=== PATIENT | male | born 1980 | race Caucasian/White ===

== ENCOUNTER 2019-03-03 08:12 | Emergency (ER) | payer BC, SELFPAY ==
--- NOTE | 2019-03-03 08:44 | EDPHYS ---
Physician Documentation [facility] Name: Yash Fuentes Age: 38 yrs Sex: Male : 1980 Arrival Date: 03/03/2019 Time: 08:14 Bed 19 Private MD: ED Physician Blue Ernandez HPI: 03/03 08:45 This 38 yrs old Male presents to ER via Ambulatory with complaints of kb Abdominal Pain. 08:45 The patient presents with abdominal pain in the upper abdomen. Onset: The kb symptoms/episode began/occurred 2 day(s) ago. The symptoms do not radiate. Associated signs and symptoms: Pertinent positives:. The symptoms are described as achy. 09:00 Modifying factors: The symptoms are alleviated by antacids, the symptoms are aggravated kb by nothing. Severity of pain: At its worst the pain was moderate in the emergency department the pain has improved markedly. The patient has not experienced similar symptoms in the past. The patient has not recently seen a physician. 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 States he took a couple of different heart burn medications and that relieved the pain for the most part. Denies fever, n/v/d.. Historical: - Allergies: 08:50 No Known Allergies; sg - Home Meds: 08:50 None [Active]; sg - PMHx: 08:50 None; sg - PSHx: 08:50 None; sg - Immunization history:: Adult Immunizations not up to date. - Social history:: Smoking status: Patient uses tobacco products. - Ebola Screening: : Patient negative for fever greater than or equal to 101.5 degrees Fahrenheit, and additional compatible Ebola Virus Disease symptoms Patient denies exposure to infectious person Patient denies travel to an Ebola-affected area in the 21 days before illness onset No symptoms or risks identified at this time. ROS: 09:00 Constitutional: Negative for fever, chills, and weight loss, ENT: Negative for injury, kb pain, and discharge, Neck: Negative for injury, pain, and swelling, Cardiovascular: Negative for chest pain, palpitations, and edema, Respiratory: Negative for shortness of breath, cough, wheezing, and pleuritic chest pain, Back: Negative for injury and pain, MS/Extremity: Negative for injury and deformity, Skin: Negative for injury, rash, and discoloration, Neuro: Negative for headache, weakness, numbness, tingling, and seizure. 09:00 Abdomen/GI: Positive for abdominal pain, Negative for nausea, vomiting, and diarrhea, constipation. Exam: 09:00 Constitutional: This is a well developed, well nourished patient who is awake, alert, kb and in no acute distress. Head/Face: Normocephalic, atraumatic. ENT: Nares patent. No nasal discharge, no septal abnormalities noted. Tympanic membranes are normal and external auditory canals are clear. Oropharynx with no redness, swelling, or masses, exudates, or evidence of obstruction, uvula midline. Mucous membranes moist. Neck: Trachea midline, no thyromegaly or masses palpated, and no cervical lymphadenopathy. Supple, full range of motion without nuchal rigidity, or vertebral point tenderness. No Meningismus. Chest/axilla: Normal chest wall appearance and motion. Nontender with no deformity. No lesions are appreciated. Cardiovascular: Regular rate and rhythm with a normal S1 and S2. No gallops, murmurs, or rubs. Normal PMI, no JVD. No pulse deficits. Respiratory: Lungs have equal breath sounds bilaterally, clear to auscultation and percussion. No rales, rhonchi or wheezes noted. No increased work of breathing, no retractions or nasal flaring. Abdomen/GI: Soft, non-tender, with normal bowel sounds. No distension or tympany. No guarding or rebound. No evidence of tenderness throughout. Skin: Warm, dry with normal turgor. Normal color with no rashes, no lesions, and no evidence of cellulitis. MS/ Extremity: Pulses equal, no cyanosis. Neurovascular intact. Full, normal range of motion. Neuro: Awake and alert, GCS 15, oriented to person, place, time, and situation. Cranial nerves II-XII grossly intact. Motor strength 5/5 in all extremities. Sensory grossly intact. Cerebellar exam normal. Normal gait. Vital Signs: 08:32 Pulse 108; Resp 18; Temp 99.1; Pulse Ox 97% on R/A; Pain 4/10; sg 08:35 BP 140 / 97; sg MDM: 08:26 Patient medically screened. kb 08:41 Data reviewed: vital signs, nurses notes. Data interpreted: Pulse oximetry: on room air kb is 97 %. Interpretation: normal. Counseling: I had a detailed discussion with the patient and/or guardian regarding: the historical points, exam findings, and any diagnostic results supporting the discharge/admit diagnosis, the need for outpatient follow up, a family practitioner, a bunch trimmer mold, to return to the emergency department if symptoms worsen or persist or if there are any questions or concerns that arise at home. Refusal of service: The patient/guardian displays adequate decision making capability and despite a detailed discussion of alternatives, benefits, risks, and consequences refuses: all lab tests. ED course: Pt reports he is feeling better after taking OTC antacids and doesn't really want to stay here for labs and US. Will return if symptoms get worse. . 03/03 08:33 Order name: IV Saline Lock kb 03/03 08:33 Order name: Labs collected and sent kandis Administered Medications: No medications were administered Disposition: 18:59 Co-signature as Attending Physician, Blue Ernandez MD. rn Disposition: 03/03/19 08:42 Discharged to Home. Impression: Upper abdominal pain, unspecified. - Condition is Stable. - Discharge Instructions: Gastroesophageal Reflux Disease, Adult, Abdominal Pain, Adult, [id number]. - Prescriptions for Bentyl 20 mg Oral Tablet - take 1 tablet by ORAL route every 6 hours As needed; 20 tablet. - Medication Reconciliation Form, Thank You Letter, Antibiotic Education, Prescription Opioid Use form. - Follow up: Emergency Department; When: As needed; Reason: Worsening of condition. Follow up: Private Physician; When: 2 - 3 days; Reason: Recheck today's complaints, Continuance of care, Re-evaluation by your physician. Signatures: Dispatcher [employer] Dayami Sprague, PORTFOLIO ACCOUNTANT-C PORTFOLIO ACCOUNTANT-CkFelton Lucio, RN RN Sarah Monreal ms, Roman, MD MD review rn: (The following items were deleted from the chart) 08:47 08:34 BASIC METABOLIC PANEL+C.LAB.BRZ ordered. EDAK EDMS 08:47 08:34 CBC+H.LAB.BRZ ordered. EDAK EDMS 08:47 08:34 HEPATIC FUNCTION+C.LAB.BRZ ordered. EDAK EDMS 08:47 08:34 LIPASE+C.LAB.BRZ ordered. EDAK EDMS 08:47 08:42 03/03/2019 08:42 Discharged to Home. Impression: Upper abdominal pain, ms unspecified. Condition is Stable. Forms are Medication Reconciliation Form, Thank You Letter, Antibiotic Education, Prescription Opioid Use. Follow up: Emergency Department; When: As needed; Reason: Worsening of condition. Follow up: Private Physician; When: 2 - 3 days; Reason: Recheck today's complaints, Continuance of care, Re-evaluation by your physician. kb
--- NOTE | 2019-03-03 08:44 | ER ---
Nurse's Notes [facility] Name: Yash Fuentes Age: 38 yrs Sex: Male : 1980 Arrival Date: 03/03/2019 Time: 08:14 Bed 19 Private MD: Diagnosis: Upper abdominal pain, unspecified Presentation: 03/03 08:33 Presenting complaint: Patient states: Epigastric pain for several days now, reports sg feels like cramping that its intermittent, has gotten a little better after having taken gabapentin and stool softeners, pt states having normal BM patterns, denies N/V/D/Fever at this time. Transition of care: patient was not received from another setting of care. Onset of symptoms was March 03, 2019. Risk Assessment: Do you want to hurt yourself or someone else? Patient reports no desire to harm self or others. Initial Sepsis Screen: Does the patient meet any 2 criteria? No. Patient's initial sepsis screen is negative. Does the patient have a suspected source of infection? Yes: Acute abdominal pain. Care prior to arrival: None. 08:33 Method Of Arrival: Ambulatory sg 08:33 Acuity: ANDREW 3 sg Historical: - Allergies: 08:50 No Known Allergies; sg - Home Meds: 08:50 None [Active]; sg - PMHx: 08:50 None; sg - PSHx: 08:50 None; sg - Immunization history:: Adult Immunizations not up to date. - Social history:: Smoking status: Patient uses tobacco products. - Ebola Screening: : Patient negative for fever greater than or equal to 101.5 degrees Fahrenheit, and additional compatible Ebola Virus Disease symptoms Patient denies exposure to infectious person Patient denies travel to an Ebola-affected area in the 21 days before illness onset No symptoms or risks identified at this time. Screenin:30 Abuse screen: Denies threats or abuse. Denies injuries from another. Nutritional sg screening: No deficits noted. Tuberculosis screening: No symptoms or risk factors identified. Never had TB. Fall Risk None identified. Assessment: 08:35 Reassessment: at bedside for lab draw, pt reports pain has resolved and he would like sg to go home to do a follow up with PCP later in the week. Zander CHE notified, pt to be dispo to home. 08:35 General: Appears in no apparent distress. well groomed, well developed, well nourished, sg Behavior is calm, cooperative, appropriate for age. 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 Neuro: Level of Consciousness is awake, alert, obeys commands, Oriented to person, place, time, Camp Director are equal bilaterally Moves all extremities. Gait is steady. Cardiovascular: Capillary refill is brisk in bilateral fingers Patient's skin is warm and dry. Chest pain is denied. Respiratory: Airway is patent Respiratory effort is even, unlabored, Respiratory pattern is regular, symmetrical. GI: Abdomen is round non-distended, Bowel sounds present X 4 quads. Reports normal bowel habits, tolerance of fluids, tolerance of food. : No signs and/or symptoms were reported regarding the genitourinary system. EENT: No signs and/or symptoms were reported regarding the EENT system. Derm: Skin is pink, warm \T\ dry. Musculoskeletal: Circulation, motion, and sensation intact. Range of motion: intact in all extremities. Vital Signs: 08:32 Pulse 108; Resp 18; Temp 99.1; Pulse Ox 97% on R/A; Pain 4/10; sg 08:35 BP 140 / 97; sg ED Course: 08:14 Patient arrived in ED. rg4 08:16 Dayami Jimenez FNP-C [facility]. kb 08:17 Blue Ernandez MD is Attending Physician. kb 08:27 Felton Gonzalez, RN is Primary Nurse. sg 08:31 Arm band placed on. sg 08:35 Triage completed. sg 08:35 Patient has correct armband on for positive identification. Bed in low position. Call sg light in reach. Side rails up X2. Pulse ox on. NIBP on. Warm blanket given. Head of bed elevated. 08:45 No provider procedures requiring assistance completed. Patient did not have IV access sg during this emergency room visit. Administered Medications: No medications were administered Outcome: 08:42 Discharge ordered by . kb 08:45 Discharged to home ambulatory, with friend. sg 08:45 Condition: good 08:45 Discharge instructions given to patient, Instructed on discharge instructions, follow up and referral plans. medication usage, safety practices, Demonstrated understanding of instructions, follow-up care, medications, Prescriptions given X 1. 08:47 Patient left the ED. ms Signatures: Dayami Jimenez, COMPRESSOR STATION OPERATOR-C COMPRESSOR STATION OPERATOR-Felton Bowling, JOSE D RN Sarah Monreal ms, Rubi rg4
[2019-03-03 08:55] VITALS: BP 140/97
[2019-03-03 09:01] VITALS: TEMP 99.1; O2SAT 97
== END 2019-03-03 08:47 | disposition home or self-care (01) ==
LOC: ER 08:12
DX: R10.10 Upper abdominal pain, unspecified (principal); Z72.0 Tobacco use
CPT/HCPCS: 99283

== ENCOUNTER 2020-12-29 04:05 | Emergency (ER) | payer SELFPAY ==
--- OUTSIDE RECORDS SUMMARY | 2020-12-29 04:08 | XMS REPORT | Continuity of Care Document ---
:1980 Author Organization [facility] t Address [address] [place] [address] Care Team Providers Name Role Phone Jes CHE Attending Clinician Doctor Unassigned, Name Attending Clinician Unavailable Problems This patient has no known problems. Allergies, Adverse Reactions, Alerts This patient has no known allergies or adverse reactions. Medications This patient has no known medications. Procedures This patient has no known procedures. Encounters Start End Encounter Admission Attending Care Care Encounter Source Date/Time Date/Time Type Type Clinicians Facility Department ID 2020-03-30 2020-03-30 Emergency Jes [facility] [id number] 21:19:00 21:37:00 Micaelaaline [place] [id number] [place] [id number] [place] [id number] 2019-07-04 2019-07-04 Orders Doctor SRIVASTAVA [id number] 00:00:00 00:00:00 Only UnassignedHEIDI [id number] [place] [facility] [id number] Results This patient has no known results.
--- NOTE | 2020-12-29 06:10 | ER ---
Nurse's Notes [facility] Name: Yash Fuentes Age: 40 yrs Sex: Male : 1980 Arrival Date: 12/29/2020 Time: 04:08 Bed 14 Private MD: Diagnosis: Local infection of the skin and subcutaneous tissue, unspecified Presentation: 12/29 04:20 Chief complaint: Patient states: he has had a skin irritation for about 3 months now it bb started after he bought a used truck. Coronavirus screen: At this time, the client does not indicate any symptoms associated with coronavirus-19. Ebola Screen: No symptoms or risks identified at this time. Initial Sepsis Screen: Does the patient meet any 2 criteria? No. Patient's initial sepsis screen is negative. Does the patient have a suspected source of infection? No. Patient's initial sepsis screen is negative. Risk Assessment: Do you want to hurt yourself or someone else? Patient reports no desire to harm self or others. Onset of symptoms is unknown. 04:20 Method Of Arrival: Ambulatory bb 04:20 Acuity: ANDREW 5 bb Triage Assessment: 04:34 General: Appears in no apparent distress. Behavior is calm, cooperative. Pain: Denies ak2 pain. Historical: - Allergies: 04:23 No Known Allergies; bb - Home Meds: 04:23 None [Active]; bb - PMHx: 04:23 None; bb - PSHx: 04:23 ear tubes; bb - Immunization history:: Adult Immunizations up to date. - Social history:: Smoking status: Patient reports the use of cigarette tobacco products, denies chronic smoking, but will smoke occasionally, Patient/guardian denies using alcohol, street drugs. Screenin:36 Abuse screen: Denies threats or abuse. Denies injuries from another. Nutritional ak2 screening: No deficits noted. Tuberculosis screening: No symptoms or risk factors identified. Fall Risk None identified. Assessment: 04:34 General: Appears in no apparent distress. Pain: Denies pain. Neuro: No deficits noted. ak2 Cardiovascular: No deficits noted. Respiratory: No deficits noted. Vital Signs: 04:20 BP 162 / 116; Pulse 111; Resp 16 S; Temp 97.8(O); Pulse Ox 98% on R/A; Weight 77.11 kg bb (R); Height 5 ft. 10 in. (177.80 cm) (R); Pain 8/10; 04:36 BP 155 / 89; Pulse 87; Resp 20; Temp 98.3(O); Pulse Ox 100% ; ak2 06:18 BP 148 / 74; Pulse 74; Resp 18; Pulse Ox 100% on R/A; ak2 04:20 Body Mass Index 24.39 (77.11 kg, 177.80 cm) ED Course: 04:08 Patient arrived in ED. am4 04:23 Triage completed. bb 04:23 Arm band placed on Patient placed in an exam room, on a stretcher, on pulse oximetry. bb 04:27 Darrel Smith is Primary Nurse. ak2 04:36 Patient has correct armband on for positive identification. ak2 04:36 No provider procedures requiring assistance completed. ak2 05:12 Darshan Schwartz MD is Attending Physician. 7 06:06 Dayami Jimenez FNP-C is [facility]. kandis Administered Medications: No medications were administered Outcome: 06:10 Discharge ordered by . kb 06:18 Discharged to home ambulatory. ak2 06:18 Condition: good 06:18 Discharge instructions given to patient. 06:19 Patient left the ED. ak2 Signatures: Dayami Jimenez FNP-C FNP-Ckb Ballard, Brenda RN RN bb Darshan Schwartz MD MD Krystina Enamorado [facility] Darrel Smith ak2
--- NOTE | 2020-12-29 06:10 | EDPHYS ---
Physician Documentation [facility] Name: Yash Fuentes Age: 40 yrs Sex: Male : 1980 Arrival Date: 12/29/2020 Time: 04:08 Bed 14 Private MD: ED Physician Darshan Schwartz HPI: 12/29 06:17 This 40 yrs old Male presents to ER via Ambulatory with complaints of Rash. kb 06:17 The patient's rash thought to be caused by an unknown cause. The rash is located on the kb pinna of right ear and left rouse. The rash can be described as small open wound. Onset: The symptoms/episode began/occurred 3.5 month(s) ago. Associated signs and symptoms: Pertinent positives: Pain Pertinent negatives: None. Severity of symptoms: At their worst the symptoms were mild in the emergency department the symptoms are unchanged. The patient has not experienced similar symptoms in the past. The patient has not recently seen a physician. Pt reports small wounds to left rouse and right ear. States they have been there for 3.5 months and haven't changed. . Historical: - Allergies: 04:23 No Known Allergies; bb - Home Meds: 04:23 None [Active]; bb - PMHx: 04:23 None; bb - PSHx: 04:23 ear tubes; bb - Immunization history:: Adult Immunizations up to date. - Social history:: Smoking status: Patient reports the use of cigarette tobacco products, denies chronic smoking, but will smoke occasionally, Patient/guardian denies using alcohol, street drugs. ROS: 06:17 Constitutional: Negative for fever, chills, and weight loss. kb 06:17 Skin: Positive for abrasion(s), of the left rouse and right ear, small open wound. 06:17 All other systems are negative. Exam: 06:17 Constitutional: This is a well developed, well nourished patient who is awake, alert, kb and in no acute distress. Head/Face: Normocephalic, atraumatic. ENT: Moist Mucous membranes Respiratory: Respirations even and unlabored. No increased work of breathing, no retractions or nasal flaring. MS/ Extremity: Pulses equal, no cyanosis. Neurovascular intact. Full, normal range of motion. Neuro: Awake and alert, GCS 15, oriented to person, place, time, and situation. Moves all extremities. Normal gait. Psych: Awake, alert, with orientation to person, place and time. Behavior, mood, and affect are within normal limits. 06:17 Skin: small abrasion to right ear, small open wound (size of pencil eraser) to left rouse. Vital Signs: 04:20 BP 162 / 116; Pulse 111; Resp 16 S; Temp 97.8(O); Pulse Ox 98% on R/A; Weight 77.11 kg bb (R); Height 5 ft. 10 in. (177.80 cm) (R); Pain 8/10; 04:36 BP 155 / 89; Pulse 87; Resp 20; Temp 98.3(O); Pulse Ox 100% ; ak2 06:18 BP 148 / 74; Pulse 74; Resp 18; Pulse Ox 100% on R/A; ak2 04:20 Body Mass Index 24.39 (77.11 kg, 177.80 cm) bb MDM: 06:06 Patient medically screened. kb 06:17 Data reviewed: vital signs, nurses notes. Data interpreted: Pulse oximetry: on room air kb is 100 %. Interpretation: normal. Counseling: I had a detailed discussion with the patient and/or guardian regarding: the historical points, exam findings, and any diagnostic results supporting the discharge/admit diagnosis, the need for outpatient follow up, a family practitioner, to return to the emergency department if symptoms worsen or persist or if there are any questions or concerns that arise at home. Administered Medications: No medications were administered Disposition: 12/30 06:07 Co-signature as Attending Physician, Darshan Schwartz MD. mh7 Disposition Summary: 12/29/20 06:10 Discharge Ordered Location: Home kb Condition: Stable kb Diagnosis - Local infection of the skin and subcutaneous tissue, unspecified kb Followup: kb - With: Emergency Department - When: As needed - Reason: Worsening of condition Followup: kb - With: Private Physician - When: 2 - 3 days - Reason: Recheck today's complaints, Continuance of care, Re-evaluation by your physician Discharge Instructions: - Discharge Summary Sheet kb - Wound Infection, [id number] kb Forms: - Medication Reconciliation Form kb - Thank You Letter kb - Antibiotic Education kb - Prescription Opioid Use kb Prescriptions: - mupirocin 2 % Topical ointment - apply 1 application by TOPICAL route 3 times per day for 7 days; 1 tube; kb Refills: 0, Product Selection Permitted Signatures: Dayami Jimenez FNP-C FNP-Ckb Ballard, Brenda, RN RN Darshan Horton MD MD mh7
[2020-12-29 06:28] VITALS: TEMP 98.3; O2SAT 100
[2020-12-29 06:30] VITALS: BP 148/74
== END 2020-12-29 06:19 | disposition home or self-care (01) ==
LOC: ER 04:05
DX: L08.9 Local infection of the skin and subcutaneous tissue, unspecified (principal); F17.210 Nicotine dependence, cigarettes, uncomplicated
CPT/HCPCS: 99283

== ENCOUNTER 2021-02-11 03:15 | Emergency (ER) | payer SELFPAY ==
--- OUTSIDE RECORDS SUMMARY | 2021-02-11 03:19 | XMS REPORT | Continuity of Care Document ---
:1980 Author Organization [facility] t Address [address] [place] [address] Care Team Providers Name Role Phone Jes [...] Facility Department ID 2020-03-30 2020-03-30 Emergency Jes [facility] [id number] 21:19:00 21:37:00 [place] [id number] [place] [id number] [place] [id number] 2019-07-04 2019-07-04 Orders Doctor SRIVASTAVA [id number] 00:00:00 00:00:00 Only UnassignedHEIDI [id number] [place] [facility] [id number] Results This patient has no known results.
--- NOTE | 2021-02-11 05:41 | EDPHYS ---
Physician Documentation [facility] Name: Yash Fuentes Age: 40 yrs Sex: Male : 1980 Arrival Date: 02/11/2021 Time: 03:18 Bed IW10 Private MD: ED Physician Manas Lindsey HPI: 02/11 05:50 This 40 yrs old Male presents to ER via Ambulatory with complaints of Rash. tw4 05:50 The patient's rash thought to be caused by an unknown cause. The rash is located on the tw4 body diffusely. The rash can be described as papular. Onset: The symptoms/episode began/occurred 3 month(s) ago. Associated signs and symptoms: Pertinent positives: None. Pertinent negatives: None. Treatment given at home: steroid lotion/cream. The patient has not experienced similar symptoms in the past. Historical: - Allergies: 04:48 No Known Allergies; em - PMHx: 04:48 None; em - PSHx: 04:48 ear tubes; em - Immunization history:: Client reports having NOT received the Covid vaccine. - Social history:: Smoking status: Patient reports the use of cigarette tobacco products, denies chronic smoking, but will smoke occasionally. ROS: 05:50 Constitutional: Negative for fever, chills, and weight loss, Eyes: Negative for injury, tw4 pain, redness, and discharge, Cardiovascular: Negative for chest pain, palpitations, and edema, Respiratory: Negative for shortness of breath, cough, wheezing, and pleuritic chest pain, Abdomen/GI: Negative for abdominal pain, nausea, vomiting, diarrhea, and constipation, Back: Negative for injury and pain, MS/Extremity: Negative for injury and deformity, Neuro: Negative for headache, weakness, numbness, tingling, and seizure. 05:50 Skin: Positive for rash, Negative for abrasions, abscesses, avulsion, burn, diaphoresis, discoloration, ecchymosis, erythema. Exam: 05:50 Constitutional: This is a well developed, well nourished patient who is awake, alert, tw4 and in no acute distress. Head/Face: Normocephalic, atraumatic. Chest/axilla: Normal chest wall appearance and motion. Nontender with no deformity. No lesions are appreciated. Cardiovascular: Regular rate and rhythm with a normal S1 and S2. No gallops, murmurs, or rubs. Normal PMI, no JVD. No pulse deficits. Respiratory: Lungs have equal breath sounds bilaterally, clear to auscultation and percussion. No rales, rhonchi or wheezes noted. No increased work of breathing, no retractions or nasal flaring. Abdomen/GI: Soft, non-tender, with normal bowel sounds. No distension or tympany. No guarding or rebound. No evidence of tenderness throughout. Back: No spinal tenderness. No costovertebral tenderness. Full range of motion. MS/ Extremity: Pulses equal, no cyanosis. Neurovascular intact. Full, normal range of motion. Neuro: Awake and alert, GCS 15, oriented to person, place, time, and situation. Cranial nerves II-XII grossly intact. Motor strength 5/5 in all extremities. Sensory grossly intact. Cerebellar exam normal. Normal gait. 05:50 Skin: Appearance: normal except for affected area. Vital Signs: 04:45 Pulse 87; Resp 18; Temp 97.9; Pulse Ox 100% on R/A; Weight 81.65 kg; Height 5 ft. 10 em in. (177.80 cm); Pain 0/10; 04:49 BP 113 / 76; em 04:45 Body Mass Index 25.83 (81.65 kg, 177.80 cm) em MDM: 05:33 Differential diagnosis: impetigo, varicella. Data reviewed: vital signs, nurses notes. tw4 Data interpreted: Pulse oximetry: Interpretation: normal. Counseling: I had a detailed discussion with the patient and/or guardian regarding: the historical points, exam findings, and any diagnostic results supporting the discharge/admit diagnosis. Medical screen evaluation completed. [facility] emergency medical condition absent. 05:40 Patient medically screened. tw4 Administered Medications: No medications were administered Disposition Summary: 02/11/21 05:40 Discharge Ordered Location: Home tw4 Problem: new tw4 Symptoms: have improved tw4 Condition: Stable tw4 Diagnosis - Rash and other nonspecific skin eruption tw4 Followup: tw4 - With: Private Physician - When: Upon discharge from the Emergency Department - Reason: Recheck today's complaints, Continuance of care, Re-evaluation by your physician Discharge Instructions: - Discharge Summary Sheet tw4 - Rash, Adult tw4 Forms: - Medication Reconciliation Form tw4 - Thank You Letter tw4 - Antibiotic Education tw4 - Prescription Opioid Use tw4 Signatures: Koby Callejas, JOSE D RN Manas Parker MD MD tw
--- NOTE | 2021-02-11 05:41 | ER ---
Nurse's Notes [facility] Name: Yash Fuentes Age: 40 yrs Sex: Male : 1980 Arrival Date: 02/11/2021 Time: 03:18 Bed IW10 Private MD: Diagnosis: Rash and other nonspecific skin eruption Presentation: 02/11 04:45 Chief complaint: Patient states: skin infection on arms for a few months, was here last em month and was given antibiotic cream but didn't work, denies fever. Coronavirus screen: Client denies travel out of the [place] in the last 14 days. Ebola Screen: Patient negative for fever greater than or equal to 101.5 degrees Fahrenheit, and additional compatible Ebola Virus Disease symptoms Patient denies exposure to infectious person. Patient denies travel to an Ebola-affected area in the 21 days before illness onset. No symptoms or risks identified at this time. Initial Sepsis Screen: Does the patient meet any 2 criteria? No. Patient's initial sepsis screen is negative. Does the patient have a suspected source of infection? No. Patient's initial sepsis screen is negative. Risk Assessment: Do you want to hurt yourself or someone else? Patient reports no desire to harm self or others. Onset of symptoms was February 11, 2021. 04:45 Method Of Arrival: Ambulatory em 04:45 Acuity: ANDREW 5 em Historical: - Allergies: 04:48 No Known Allergies; em - PMHx: 04:48 None; em - PSHx: 04:48 ear tubes; em - Immunization history:: Client reports having NOT received the Covid vaccine. - Social history:: Smoking status: Patient reports the use of cigarette tobacco products, denies chronic smoking, but will smoke occasionally. Screenin:48 Abuse screen: Denies threats or abuse. Nutritional screening: No deficits noted. em Tuberculosis screening: No symptoms or risk factors identified. Fall Risk None identified. Assessment: 05:00 General: Appears in no apparent distress. comfortable, Behavior is calm, cooperative, em appropriate for age. Pain: Denies pain. Neuro: Level of Consciousness is awake, alert, obeys commands, Oriented to person, place, time, situation. Cardiovascular: Capillary refill < 3 seconds Patient's skin is warm and dry. Respiratory: Airway is patent Respiratory effort is even, unlabored, Respiratory pattern is regular, symmetrical. Derm: Skin is intact, is healthy with good turgor, Skin is pink, warm \T\ dry. Musculoskeletal: Capillary refill < 3 seconds, Range of motion: intact in all extremities. Vital Signs: 04:45 Pulse 87; Resp 18; Temp 97.9; Pulse Ox 100% on R/A; Weight 81.65 kg; Height 5 ft. 10 em in. (177.80 cm); Pain 0/10; 04:49 BP 113 / 76; em 04:45 Body Mass Index 25.83 (81.65 kg, 177.80 cm) em ED Course: 03:18 Patient arrived in ED. 04:48 Triage completed. em 04:48 Arm band placed on. em 04:48 Patient has correct armband on for positive identification. em 04:48 No provider procedures requiring assistance completed. Patient did not have IV access em during this emergency room visit. 04:52 Manas Lindsey MD is Attending Physician. tw4 05:23 Koby Callejas RN is Primary Nurse. em Administered Medications: No medications were administered Outcome: 05:23 Medical screen evaluation completed per provider. Patient declined treatment. em 05:23 Condition: stable 05:28 Following a medical screening exam, the patient was provided information regarding em alternative care sites and resources available per registration personnel. 05:40 Discharge ordered by . tw4 05:42 Patient left the ED. em Signatures: Koby Callejas, JOSE D RN em Manas Lindsey MD MD [facility] Jordyn Arciniega
[2021-02-11 05:48] VITALS: TEMP 97.9; O2SAT 100
[2021-02-11 05:49] VITALS: BP 113/76
== END 2021-02-11 05:42 | disposition home or self-care (01) ==
LOC: ER 03:15
DX: R21 Rash and other nonspecific skin eruption (principal); F17.210 Nicotine dependence, cigarettes, uncomplicated
CPT/HCPCS: 99281

== ENCOUNTER 2021-08-09 14:15 | Emergency (ER) | payer SELFPAY ==
--- OUTSIDE RECORDS SUMMARY | 2021-08-09 14:18 | XMS REPORT | Continuity of Care Document ---
:1980 Author Organization [facility] t Address [address] [place] [address] Care Team Providers Name Role Phone PCP, DOES NOT HAVE A Primary Care Physician Unavailable Kerri WAITER/WAITRESS INFORMAL Attending Clinician KERRI Attending Clinician Unavailable Doctor Unassigned, Name Attending Clinician Unavailable HOYOS, R Attending Clinician Unavailable HOYOS, R Admitting Clinician Unavailable Problems Condition Condition Condition Status Onset Resolution Last Treating Co mments Source Name Details Category Date Date Treatment Clinician Date No known No known Disease Unive rs active active ity of problems problems [facility] Allergies, Adverse Reactions, Alerts Allergy Allergy Status Severity Reaction(s) Onset Inactive Treating Comm ents Source Name Type Date Date Clinician NO KNOWN Drug Active Univers ALLERGIE Class ity of S [facility] Social History Social Habit Start Date Stop Date Quantity Comments Source Exposure to SARS-CoV-2 Not sure [facility] Sex Assigned At Uni versity [facility] Smoking Status Start Date Stop Date Source Unknown if ever smoked [facility]it y [facility] Medications Ordered Filled Start Stop Current Ordering Indication Dosage Frequency Signature Comments Components Source Medication Medication Date Date Medication? Clinician (SIG) Name Name methocarbam 2019-06 2020- No 500mg 500 mg, U nivers oL 0-11 10-11 Oral, ity of (ROBAXIN) 03:30: 02:22 ONCE, 1 [place] 500 [place] :00 dose, Sat Medi [place] mg 03/30/20 Branch at 2230, Routine methocarbam 2019-06 Yes [id number] 750mg Take 1 Univers oL 750 mg 0-10 tablet by ity o f tablet 00:00: mouth 4 (four) Medical times Branch daily as needed for Pain (scale 4-6) or Pain (scale 7-10). lidocaine 5 2019- Yes [id number] 1{patch Apply 1 Univers % (700 0-10 } Patch to ity of mg/patch) 00:00: area(s) [place] patch 00 every 8 Medical (eight) Branch hours as needed for Localized pain. traMADol 50 2020-0 Yes [id number] 50mg Take 1 Univers mg tablet 1-06 tablet by ity o f 00:00: mouth [place] 00 every 6 Medical (six) Branch hours as needed for Pain (scale 7-10). naproxen 2020-0 Yes [id number] 500mg Take 1 U nivers 500 mg 1-06 tablet by ity of tablet 00:00: mouth 2 (two) Medical times Branch daily with meals. methocarbam 2020-0 Yes [id number] 500mg Take 1 Univers ol 500 mg 1-06 tablet by ity o f tablet 00:00: mouth 4 00 (four) Medical times Branch daily. traMADol 50 2020-0 Yes [id number] 50mg Take 1 Univers mg tablet 1-06 tablet by ity o f 00:00: mouth [place] 00 every 6 Medical (six) Branch hours as needed for Pain (scale 7-10). naproxen 2020-0 Yes [id number] 500mg Take 1 U nivers 500 mg 1-06 tablet by ity of tablet 00:00: mouth 2 (two) Medical times Branch daily with meals. methocarbam 2020-0 Yes [id number] 500mg Take 1 Univers ol 500 mg 1-06 tablet by ity o f tablet 00:00: mouth 4 (four) Medical times Branch daily. traMADOL 2018-0 Yes 50mg Take 1 Univers (ULTRAM) 50 8-05 tablet by ity of mg tablet 00:00: mouth [place] 00 every 6 Medical (six) Branch hours as needed for Pain (scale 4-6). traMADOL 2018-0 Yes 50mg Take 1 Univers (ULTRAM) 50 8-05 tablet by ity of mg tablet 00:00: mouth [place] 00 every 6 Medical (six) Branch hours as needed for Pain (scale 4-6). Vital Signs Vital Name Observation Time Observation Value Comments Source Heart rate 2020-03-31 02:06:00 75 /min [facility] Body temperature 2020-03-31 02:06:00 37.28 Rere [facility] [place] [facility] Respiratory rate 2020-03-31 02:06:00 19 /min [facility] [place] [facility] Body height 2020-03-31 02:06:00 177.8 cm [facility] [place] [facility] Body weight 2020-03-31 02:06:00 74.8 kg [facility] [place] [facility] BMI 2020-03-31 02:06:00 23.66 kg/m2 [facility] [place] [facility] Oxygen saturation in 2020-03-31 02:06:00 100 /min [facility] of Arterial blood by [place] [facility] Pulse oximetry Branch Heart rate 2020-03-31 02:06:00 75 /min [facility] [place] [facility] Body temperature 2020-03-31 02:06:00 37.28 Rere [facility] [place] [facility] Respiratory rate 2020-03-31 02:06:00 19 /min [facility] [place] [facility] Body height 2020-03-31 02:06:00 177.8 cm [facility] [place] [facility] Body weight 2020-03-31 02:06:00 74.8 kg [facility] [place] [facility] BMI 2020-03-31 02:06:00 23.66 kg/m2 [facility] [place] [facility] Oxygen saturation in 2020-03-31 02:06:00 100 /min University of Arterial blood by [place] Medi hare[facility] Pulse oximetry Branch Procedures Procedure Date / Time Performing Clinician Source Performed NOTICE OF PRIVACY 2020-03-31 02:02:05 Doctor Unassigned, No [facility] [place] [facility] Name Medical Branch CONSENT/REFUSAL FOR 2020-03-31 02:01:49 Doctor Unassigned, No [facility] Name Medical Branch AUTHORIZATION FOR 2019-07-04 06:01:00 Doctor Unassigned, No Univ [facility] RELEASE OF PHI Name Medical Branch Encounters Start End Encounter Admission Attending Care Care Encounter Source Date/Time Date/Time Type Type Clinicians Facility Department ID 2020-03-30 2020-03-30 Emergency Kerri NCELIF [id number] 21:19:00 21:37:00 Monet Chambers [id number] [place] [id number] [place] [address] [id number] 2020-03-30 2020-03-30 Emergency Kerri, [facility] [id number] Univers 21:19:00 21:37:00 Micaelaaline Reyes [id number] i ty of [place] [id number] [facility] [phone] [place] [id number] Branch 2020-03-30 2020-03-30 [id number] Univers 20:55:00 20:55:00 MONET campos [facility] 2019-07-04 2019-07-04 Orders Doctor ATIF [id number] 00:00:00 00:00:00 Only Unassigned, HEDII [id number] [place] [facility] [id number] 2019-07-04 2019-07-04 Orders Doctor ATIF [id number] Univers 00:00:00 00:00:00 Only Unassigned, HEIDI [id number] ity of [place] [facility] [id number] [place] [facility] [id number] [facility] 009 Branch 2019-06-26 2019-06-26 Emergency X [facility] ERT [id number] Univers 12:36:14 15:36:00 HERMANN campos [facility] Results This patient has no known results.
[2021-08-09] MEDS ORDERED: NA CHLORIDE 0.9% 1,000 ML ONE (15:35)
[2021-08-09 15:38] LABS: Absolute Lymphocytes (CBC) 1.5 K/uL (0.7-4.9); Hematocrit 43.9 % (39.6-49.0); Lymphocytes % 18.5 % (15.3-44.8); MPV 7.7 fL (7.6-11.3); RBC Red Blood Cell Count 4.59 M/uL (4.33-5.43)
--- NOTE | 2021-08-09 15:41 | RAD REPORT ---
EXAM DESCRIPTION: RAD - Foot Right 3 View - 08/09/2021 3:36 pm CLINICAL HISTORY: PAIN, nontraumatic COMPARISON: No remote comparison imaging FINDINGS: No fracture, dislocation or periosteal reaction. No acute or destructive bone process iden tifiable. No air or foreign body in the soft tissues. IMPRESSION: Negative right foot examination.
--- NOTE | 2021-08-09 15:42 | RAD REPORT ---
EXAM DESCRIPTION: RAD - Foot Left 3 View - 08/09/2021 3:36 pm CLINICAL HISTORY: PAIN COMPARISON: No comparisons FINDINGS: No fracture, dislocation or periosteal reaction. No acute or destructive bony process. No air or foreign body in the soft tissues. IMPRESSION: Negative left foot examination.
[2021-08-09 15:55] LABS: Potassium 3.5 mmol/L (3.5-5.1)
--- NOTE | 2021-08-09 16:21 | ER ---
Nurse's Notes [facility] Name: Yash Fuentes Age: 41 yrs Sex: Male : 1980 Arrival Date: 08/09/2021 Time: 14:23 Bed 28 Private MD: Diagnosis: Pain in right foot;Pain in left foot Presentation: 08/09 14:25 Chief complaint: Patient states: Pt bib EMS for [place] feet pain x 1 wk, pt states he has lr4 walked a mile today. Coronavirus screen: Vaccine status: Patient reports being unvaccinated. Client denies travel out of the [place] in the last 14 days. Ebola Screen: Patient negative for fever greater than or equal to 101.5 degrees Fahrenheit, and additional compatible Ebola Virus Disease symptoms. Initial Sepsis Screen: Does the patient meet any 2 criteria? No. Patient's initial sepsis screen is negative. Does the patient have a suspected source of infection? No. Patient's initial sepsis screen is negative. Risk Assessment: Do you want to hurt yourself or someone else? Patient reports no desire to harm self or others. Onset of symptoms was August 02, 2021. 14:25 Acuity: ANDREW 4 lr4 14:25 Method Of Arrival: EMS: [facility] jl7 Triage Assessment: 14:28 General: Appears in no apparent distress. uncomfortable, well groomed, well developed, lr4 Behavior is cooperative, anxious, fussy. Pain: Complains of pain in right foot and left foot Pain currently is 7 out of 10 on a pain scale. Quality of pain is described as aching, Pain began 1 wk ago. Neuro: No deficits noted. Cardiovascular: No deficits noted. Respiratory: No deficits noted. GI: No deficits noted. Historical: - Allergies: 14:28 No Known Allergies; lr4 - Home Meds: 14:28 None [Active]; lr4 - PMHx: 14:28 None; lr4 - PSHx: 14:28 ear tubes; lr4 - Immunization history:: Adult Immunizations not up to date, Client reports having NOT received the Covid vaccine. Flu vaccine is up to date. - Social history:: Smoking status: Patient reports the use of cigarette tobacco products, smokes one-half pack cigarettes per day, 1/3 ppd. Screenin:32 Abuse screen: Denies threats or abuse. Nutritional screening: No deficits noted. lr4 Tuberculosis screening: No symptoms or risk factors identified. Fall Risk None identified. Assessment: 15:30 General: Appears in no apparent distress. unkempt, Behavior is calm, cooperative, ss7 appropriate for age. Pain: Complains of pain in left foot and right foot. Neuro: No deficits noted. Cardiovascular: Reports None Heart tones S1 S2. Respiratory: Breath sounds are clear bilaterally. GI: No deficits noted. : No deficits noted. EENT: No deficits noted. Derm: No deficits noted. Musculoskeletal: No deficits noted. Tenderness Reports pain in left foot and right foot. 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 Pt wheeled to lobby and showed how to use phone. Vital Signs: 14:25 BP 142 / 105; Pulse 101; Resp 22; Temp 98.2; Pulse Ox 99% on R/A; Weight 77.11 kg; lr4 Height 5 ft. 10 in. (177.80 cm); Pain 7/10; 15:35 BP 137 / 95; Pulse 91; Resp 18; Pulse Ox 100% on R/A; ss7 16:15 BP 119 / 85; Pulse 77; Resp 18; Pulse Ox 100% on R/A; ss7 14:25 Body Mass Index 24.39 (77.11 kg, 177.80 cm) lr4 ED Course: 14:23 Patient arrived in ED. lr4 14:28 Triage completed. lr4 14:32 No provider procedures requiring assistance completed. lr4 14:32 Patient has correct armband on for positive identification. Bed in low position. Call lr4 light in reach. Side rails up X 1. Pulse ox on. NIBP on. 14:32 Patient placed in an exam room, on a stretcher. lr4 14:33 Saman Moreira NP is PHCP. pm1 14:34 Blue Ernandez MD is Attending Physician. pm1 15:20 Inserted saline lock: 20 gauge in left antecubital area, using aseptic technique. ss7 15:22 BMP Sent. ss7 15:22 CBC with Diff Sent. ss7 15:30 IV discontinued, intact. ss7 15:30 Diet: Patient given a regular meal tray. Tolerated well. ss7 15:35 Foot Left 3 View XRAY In Process Unspecified. EDMS 15:35 Foot Right 3 View XRAY In Process Unspecified. EDMS Administered Medications: 15:33 Drug: NS 0.9% 1000 ml Route: IV; Rate: 1000 ml; Site: left antecubital; ss7 16:37 Follow up: IV Status: Completed infusion; IV Intake: 1000ml ss7 16:45 Drug: Ketorolac 30 mg Route: IVP; Site: left antecubital; ss7 Intake: 16:37 IV: 1000ml; Total: 1000ml. ss7 Outcome: 14:32 Condition: stable lr4 16:20 Discharge ordered by . pm1 17:00 Discharged to home via wheelchair, Pt refused to sign discharge paperwork. Disgruntle ss7 and upset upon discharge. Charge Nurse notified and assisted with discharge of pt who is in NAD. 17:00 Discharge instructions given to patient. 17:02 Patient left the ED. ss7 Signatures: Dispatcher [employer] EDMS Saman Moreira, [employer]IA SHIPPING CLERK PACKING pm1 Tariq Kim RN RN jl7 Ena Chinchilla RN RN ss7 Jeni Desai RN RN lr4 Corrections: (The following items were deleted from the chart) 14:48 14:25 Method Of Arrival: EMS: [facility] lr4 jl7
--- NOTE | 2021-08-09 16:21 | EDPHYS ---
Physician Documentation [facility] Name: Yash Fuentes Age: 41 yrs Sex: Male : 1980 Arrival Date: 08/09/2021 Time: 14:23 Bed 28 Private MD: ED Physician Blue Ernandez HPI: 08/09 15:34 This 41 yrs old Male presents to ER via EMS with complaints of Foot Pain. pm1 15:34 The patient presents with pain. The complaints affect the right foot and left foot. pm1 Context: resulted from an unknown cause, Walked a mile today, the patient can fully bear weight, the patient is able to ambulate. Onset: The symptoms/episode began/occurred 1 week(s) ago. Modifying factors: The symptoms are alleviated by nothing. the symptoms are aggravated by weight bearing. Associated signs and symptoms: Pertinent negatives calf tenderness, swelling. Treatment prior to arrival includes: no previous treatment. Severity of symptoms: in the emergency department the symptoms are unchanged. The patient has not recently seen a physician. Historical: - Allergies: 14:28 No Known Allergies; lr4 - Home Meds: 14:28 None [Active]; lr4 - PMHx: 14:28 None; lr4 - PSHx: 14:28 ear tubes; lr4 - Immunization history:: Adult Immunizations not up to date, Client reports having NOT received the Covid vaccine. Flu vaccine is up to date. - Social history:: Smoking status: Patient reports the use of cigarette tobacco products, smokes one-half pack cigarettes per day, 1/3 ppd. ROS: 15:34 Constitutional: Negative for fever, chills, and weight loss, Cardiovascular: Negative pm1 for chest pain, palpitations, and edema, Respiratory: Negative for shortness of breath, cough, wheezing, and pleuritic chest pain. 15:34 Neuro: Negative for headache, weakness, numbness, tingling, and seizure. 15:34 MS/extremity: Positive for pain, of the left foot and right foot, Negative for decreased range of motion, deformity. 15:34 All other systems are negative. Exam: 15:34 Constitutional: This is a well developed, well nourished patient who is awake, alert, pm1 and in no acute distress. Head/Face: Normocephalic, atraumatic. 15:34 Cardiovascular: Exam negative for acute changes, Rate: normal, Rhythm: regular, Pulses: no pulse deficits are appreciated. 15:34 Respiratory: Exam negative for acute changes, respiratory distress, shortness of breath. 15:34 Musculoskeletal/extremity: Extremities: grossly normal except: noted in the left foot and right foot: pain, tenderness, There is no evidence of decreased ROM, deformity, swelling. 15:34 Skin: Appearance: normal except for affected area, multiple callous present to the soles of both soles of feet. 15:34 Neuro: Exam negative for acute changes, Orientation: is normal, Mentation: is normal, Motor: is normal, moves all fours. Vital Signs: 14:25 BP 142 / 105; Pulse 101; Resp 22; Temp 98.2; Pulse Ox 99% on R/A; Weight 77.11 kg; lr4 Height 5 ft. 10 in. (177.80 cm); Pain 7/10; 15:35 BP 137 / 95; Pulse 91; Resp 18; Pulse Ox 100% on R/A; ss7 16:15 BP 119 / 85; Pulse 77; Resp 18; Pulse Ox 100% on R/A; ss7 14:25 Body Mass Index 24.39 (77.11 kg, 177.80 cm) lr4 MDM: 14:38 Patient medically screened. pm1 16:20 Data reviewed: vital signs. Data interpreted: Pulse oximetry: on room air is 100 %. pm1 Interpretation: normal. Counseling: I had a detailed discussion with the patient and/or guardian regarding: the historical points, exam findings, and any diagnostic results supporting the discharge/admit diagnosis, lab results, radiology results, the need for outpatient follow up, to return to the emergency department if symptoms worsen or persist or if there are any questions or concerns that arise at home. 08/09 15:04 Order name: CBC with Diff; Complete Time: 15:56 pm1 08/09 15:04 Order name: BMP; Complete Time: 15:56 pm1 08/09 15:04 Order name: Foot Left 3 View XRAY; Complete Time: 15:56 pm1 08/09 15:04 Order name: Foot Right 3 View XRAY; Complete Time: 15:56 pm1 08/09 15:57 Order name: Diet Regular; Complete Time: 15:57 pm1 Administered Medications: 15:33 Drug: NS 0.9% 1000 ml Route: IV; Rate: 1000 ml; Site: left antecubital; ss7 16:37 Follow up: IV Status: Completed infusion; IV Intake: 1000ml ss7 16:45 Drug: Ketorolac 30 mg Route: IVP; Site: left antecubital; ss7 Disposition: 18:25 Co-signature as Attending Physician, Blue Ernandez MD I agree with the assessment and rn plan of care. Attestation: The patient's history, exam findings, diagnostics, and a summary of any interventions or procedures was reviewed in detail with Saman Moreira NP. Disposition Summary: 08/09/21 16:20 Discharge Ordered Location: Home pm1 Problem: new pm1 Symptoms: have improved pm1 Condition: Stable pm1 Diagnosis - Pain in right foot pm1 - Pain in left foot pm1 Followup: pm1 - With: Emergency Department - When: As needed - Reason: Worsening of condition Followup: pm1 - With: Private Physician - When: 2 - 3 days - Reason: Recheck today's complaints, Continuance of care, Re-evaluation by your physician Discharge Instructions: - Discharge Summary Sheet pm1 - Foot Pain pm1 Forms: - Medication Reconciliation Form pm1 - Thank You Letter pm1 - Antibiotic Education pm1 - Prescription Opioid Use pm1 Signatures: Dispatcher [employer] EDBlue Gallegos MD MD rn Marinas, Patrick, NP PALEOLOGY PROFESSOR pm1 Ena Chinchilla RN RN ss7 Jeni Desai RN RN lr4
[2021-08-09] MEDS ORDERED: KETOROLAC 30 MG/ML INJ ONE (16:46)
[2021-08-09 17:37] VITALS: TEMP 98.2
[2021-08-09 17:39] VITALS: O2SAT 100
[2021-08-09 17:40] VITALS: BP 119/85
== END 2021-08-09 17:02 | disposition home or self-care (01) ==
LOC: ER 14:15
DX: M79.671 Pain in right foot (principal); M79.672 Pain in left foot; F17.210 Nicotine dependence, cigarettes, uncomplicated
CPT/HCPCS: 36415; 80048; 85025; 96361; 96374; 99284; J7030

== ENCOUNTER 2022-02-02 12:01 | Emergency (ER) | payer SELFPAY ==
--- OUTSIDE RECORDS SUMMARY | 2022-02-02 12:05 | XMS REPORT | Continuity of Care Document ---
:1980 Author Organization [facility] t Address [address] [place] [address] Care Team Providers Name Role Phone PCP, PATIENT DOES NOT HAVE A Primary Care Physician Unavaila Monet Gutiérrez Attending Clinician MONET MANNING Attending Clinician Unavailable Doctor Unassigned, [place] Attending Clinician Unavailable HERMANN HOYOS Attending Clinician Unavailable HERMANN HOYOS Admitting Clinician Unavailable Problems Condition Condition Condition Status Onset Resolution Last Treating Co mments Source Name Details Category Date Date Treatment Clinician Date No known No known Disease Unive rs active active ity of problems problems [facility] Allergies, Adverse Reactions, Alerts Allergy Allergy Status Severity Reaction(s) Onset Inactive Treating Comm ents Source Name Type Date Date Clinician NO KNOWN Drug Active Univers ALLERGIE Class ity of S [facility] Social History Social Habit Start Date Stop Date Quantity Comments Source [facility] to [facility]-2 [facility] Start Date Stop Date Source Unknown if ever smoked [facility] Medications Ordered Filled Start Stop Current Ordering Indication Dosage Frequency Signature Comments Components Source Medication Medication Date Date Medication? Clinician (SIG) Name Name methocarbam 2019-06 2020- No 500mg 500 mg, U nivers oL 0-11 10-11 Oral, ity of (ROBAXIN) 03:30: 02:22 ONCE, [place] 500 [place] :00 dose, Sat Medi [place] mg 03/30/20 Branch at 2230, Routine methocarbam 2019-06 Yes [id number] 750mg Take 1 Univers oL 750 mg 0-10 tablet by ity o f tablet 00:00: mouth (four) Medical times Branch daily as needed for Pain (scale 4-6) or Pain (scale 7-10). lidocaine 5 2019-1 Yes [id number] 1{patch Apply 1 Univers % (700 0-10 } Patch to ity of mg/patch) 00:00: area(s) [place] patch 00 every 8 Medical (eight) Branch hours as needed for Localized pain. traMADol 50 2020-0 Yes [id number] 50mg Take 1 Univers mg tablet 1-06 tablet by ity o f 00:00: mouth [place] 00 every 6 Medical (six) Branch hours as needed for Pain (scale 7-10). naproxen 2020-0 Yes [id number] 500mg Take 1 U nivers 500 mg 1-06 tablet by ity of tablet 00:00: mouth (two) Medical times Branch daily with meals. methocarbam 2020-0 Yes [id number] 500mg Take 1 Univers ol 500 mg 1-06 tablet by ity o f tablet 00:00: mouth (four) Medical times Branch daily. traMADol 50 2020-0 Yes [id number] 50mg Take 1 Univers mg tablet 1-06 tablet by ity o f 00:00: mouth [place] 00 every 6 Medical (six) Branch hours as needed for Pain (scale 7-10). naproxen 2020-0 Yes [id number] 500mg Take 1 U nivers 500 mg 1-06 tablet by ity of tablet 00:00: mouth (two) Medical times Branch daily with meals. methocarbam 2020-0 Yes [id number] 500mg Take 1 Univers ol 500 mg 1-06 tablet by ity o f tablet 00:00: mouth (four) Medical times Branch daily. traMADOL 2018-0 [...] Source Heart rate 2020-03-31 02:06:00 75 /min [facility] [place] [facility] Body temperature 2020-03-31 02:06:00 37.28 Rere [facility] [place] [facility] Respiratory rate 2020-03-31 02:06:00 19 /min [facility] [place] [facility] Body height 2020-03-31 02:06:00 177.8 cm [facility] [place] [facility] Body weight 2020-03-31 02:06:00 74.8 kg [facility] [place] [facility] BMI 2020-03-31 02:06:00 23.66 kg/m2 [facility] [place] [facility] Oxygen saturation in 2020-03-31 02:06:00 100 /min [facility] Arterial blood by [place] [facility] Pulse oximetry Branch Heart rate 2020-03-31 02:06:00 75 /min [facility] [place] [facility] Body temperature 2020-03-31 02:06:00 37.28 Rere [facility] [place] [facility] Respiratory rate 2020-03-31 02:06:00 19 /min [facility] [place] [facility] Body height 2020-03-31 02:06:00 177.8 cm [facility] [place] [facility] Body weight 2020-03-31 02:06:00 74.8 kg [facility] [place] [facility] BMI 2020-03-31 02:06:00 23.66 kg/m2 [facility] [place] [facility] Oxygen saturation in 2020-03-31 02:06:00 100 /min [facility] Ar[facility] blood by [place] [facility] Pulse oximetry Branch Procedures Procedure Date / Time Performing Clinician Source Performed NOTICE OF PRIVACY 2020-03-31 02:02:05 Doctor Unassigned, No [facility] [place] [facility] Name Medical Branch CONSENT/REFUSAL FOR 2020-03-31 02:01:49 Doctor Unassigned, No Un [facility] DIAGNOSIS AND TREATMENT Name Medical Branch AUTHORIZATION FOR 2019-07-04 06:01:00 Doctor Unassigned, No Univ [facility] RELEASE OF PHI Name Medical Branch Encounters Start End Encounter Admission Attending Care Care Encounter Source Date/Time Date/Time Type Type Clinicians Facility Department ID 2020-03-30 2020-03-30 [facility] [id number] 21:19:00 21:37:00 Monet Chambers [id number] [place] [id number] [place] [id number] 2020-03-30 2020-03-30 Emergency [facility] [id number] Univers 21:19:00 21:37:00 Cynaline Chambers [id number] i ty of [place] [id number] [facility] [id number] [place] [id number] [place] 2020-03-30 2020-03-30 [facility] [id number] Univers 20:55:00 20:55:00 MONET campos of [facility] 2019-07-04 2019-07-04 Orders Doctor SRIVASTAVA [id number] Univers 00:00:00 00:00:00 Only Unassigned, HEIDI [id number] ity of [facility] [id number] [facility] [id number] [address] 2019-07-04 2019-07-04 Orders Doctor SRIVASTAVA [id number] 00:00:00 00:00:00 Only Unassigned, HEIDI [id number] [facility] [id number] 2019-06-26 2019-06-26 [facility] [id number] Univers 12:36:14 15:36:00 HERMANN campos [facility] Results This patient has no known results.
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
--- NOTE | 2022-02-02 12:24 | RAD REPORT ---
EXAM DESCRIPTION: RAD - Chest Single View - 02/02/2022 12:18 pm CLINICAL HISTORY: PAIN Chest pain. COMPARISON: No comparisons FINDINGS: Portable technique limits examination quality. The lungs are grossly clear. The heart is normal in size. No displaced fractures. IMPRESSION: No acute intrathoracic process suspected.
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
[2022-02-02 12:52] LABS: Hematocrit 40.6 % (39.6-49.0); Lymphocytes % 14.8 % (15.3-44.8); MCV 99.3 fL (80-100); MPV 7.6 fL (7.6-11.3); RBC Red Blood Cell Count 4.09 M/uL (4.33-5.43)
[2022-02-02 13:06] LABS: Potassium 3.7 mmol/L (3.5-5.1)
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
== END 2022-02-02 13:15 | disposition home or self-care (01) ==
LOC: ER 12:01
DX: R07.89 Other chest pain (principal); M25.512 Pain in left shoulder; M25.552 Pain in left hip; F17.210 Nicotine dependence, cigarettes, uncomplicated; V29.40XA Motorcycle driver injured in collision with unspecified motor vehicles in traffic accident, initial encounter
CPT/HCPCS: 36415; 70450; 71045; 72125; 72170; 80048; 85025; 99284